=== PATIENT | female | born 1980 | race Caucasian/White ===

== ENCOUNTER 2016-08-22 15:29 | Emergency (ER) | payer MEDICAID, OTHER ==
[~2016-08-22] VITALS: Ht 165.1 cm; Wt 89.4 kg
[2016-08-22 15:33] VITALS: Ht 165.1 cm; Wt 89.4 kg
--- NOTE | 2016-08-22 16:38 | RADRPT ---
PROCEDURE: Obstetrical ultrasound . CLINICAL INDICATION: pain, unable to detect FHT at doctor's office TECHNIQUE: Multiple sonographic images of the pelvis were obtained utilizing a transabdominal tech nique. The images were reviewed on a PACS workstation. COMPARISON: None. FINDINGS: There is a single intrauterine present with the crown-rump length measuring 1.1 cm and the gestational sac measures 2.9 cm, which corresponds to a calculated gestational age of 7 weeks and 4 days. No heart tones are identified. The ovaries are normal. The right ovary measures 3.4 x 2.0 x 2.2 cm. The left ovary measures 3.9 x 2.5 x 2.7 cm. There is normal Doppler flow in the ovaries. No significant free fluid is present within the pelvis. RPTAT: AA IMPRESSION: Single intrauterine at 7 weeks and 4 days. No heart tones noted, consistent with demise. .Иван Galdamez MD, MD Date Time Electronically viewed and signed by .Иван Galdamez MD, on 08/22/2016 16:38 .S/
--- NOTE | 2016-08-22 16:53 | ERD ---
ER Documentation Chief Complaint Date/Time DATE: 08/22/16 TIME: 16:52 Chief Complaint SEND FOR US, 9 WEEKS HPI This 36-year-old female is approximately 9 weeks by dates. Referred by the clinic for unable to detect heart tones today. She denies any pain , bleeding, fevers, dysuria, and had no symptoms. She is a G5 para 1 ROS All systems reviewed and are negative except as per history of present illness. Physical Exam Vitals Vital Signs Date Time Temp Pulse Resp B/P Pulse Ox O2 Delivery O2 Flow Rate FiO2 08/22/16 15:33 98.1 76 18 125/81 99 Physical Exam Const: [] Alert, [id number]. Head: Atraumatic Eyes: Normal Conjunctiva ENT: Normal External Ears, Nose and Mouth. Neck: Full range of motion..~ No meningismus. Resp: Clear to auscultation bilaterally Cardio: Regular rate and rhythm, no murmurs Abd: Soft, non tender, non distended. Normal bowel sounds Skin: No petechiae or rashes Back: No midline or flank tenderness Ext: No cyanosis, or edema Neur: Awake and alert Psych: Normal Mood and Affect Procedures/MDM Pelvic ultrasound shows a 7 week 4 day intrauterine without appreciable heart tones. Patient presents with likely demise. She will discharged home with copies of results with instructions to follow-up with her OB this week. She should return for fevers, vomiting, worsening pain, new worsening symptoms. Signs and symptoms do not suggest acute abdomen, ectopic , additional complications or emergent causes of patient presenting symptoms or complaints per Departure Diagnosis: Primary Impression: demise Condition: Stable Patient Instructions: Miscarriage (Incomplete) Additional Instructions: Studies similar to clinic today. Unable to appreciate heart tones. See OB for follow-up this week. Return for pain, fevers. May have bleeding and pain this week. ROSALVA HOANG MD Aug 22, 2016 16:53
== END 2016-08-22 17:10 | disposition home or self-care (01) ==
LOC: FTE 15:29
DX: O02.1 Missed abortion (principal)
CPT/HCPCS: 76801

== ENCOUNTER 2017-06-04 19:31 | Emergency (ER) | END 2017-06-04 22:37 | disposition home or self-care (01) ==